=== PATIENT | female | born 2000 | race African-American/Black ===

== ENCOUNTER 2019-04-30 21:13 | Emergency (ER) | payer BC ==
[2019-04-30] MEDS ORDERED: Lidocaine 1% PF 5 ML VIAL ONE (22:10)
[2019-04-30] MEDS ORDERED: Azithromycin 250 MG TAB ONE (22:10)
[2019-04-30] MEDS ORDERED: cefTRIAXone\\ROCEPHIN 250 MG VIAL ONE (22:10)
[2019-04-30 22:15] LABS: Bilirubin Negative (Negative); Blood, Urine Negative (Negative); Clarity Clear (Clear); Glucose, Urine (Dipstick) Normal (Negative); Leukocyte Negative Leu/uL (Negative); Nitrite Negative (Negative); Protein, Urine (Dipstick) Negative (Neg-Trace)
[2019-05-02 20:36] LABS: Chlamydia by PCR DETECTED (NotDetected); GC by PCR Not Detected (NotDetected)
== END 2019-04-30 23:43 | disposition home or self-care (01) ==
LOC: ERS 21:13
DX: N76.0 Acute vaginitis (principal); B96.89 Other specified bacterial agents as the cause of diseases classified elsewhere
CPT/HCPCS: 81003; 87480; 87491; 87510; 87591; 87660; 96372; 99283; J0696; J2001